=== PATIENT | female | born 1995 | race African-American/Black ===

== ENCOUNTER 2016-09-02 12:18 | Emergency (ER) | payer MEDICAID, OTHER ==
[~2016-09-02] VITALS: Ht 160 cm; Wt 100.0 kg
[~2016-09-02 12:18] MED LIST: CEPH500C3 PO; FLAG500T PO; MACR100C PO; PREN1TAB30 PO
[2016-09-02 12:20] VITALS: BP 134/91; PULSE 84; RESP 17; TEMP 98.7; O2SAT 96
--- NOTE | 2016-09-02 12:45 | PD ---
HPI Chief Complaint: Allergic/Adverse Reaction Time Seen by Provider: 12:32 Travel History International Travel<30 days: No Contact w/Intl Traveler<30days: No Traveled to known affect area: No History of Present Illness HPI 21-year-old female presents emergency Department with complaint of sore throat. Patient took a tablet of Lortab last night and woke up this morning with sore throat and is concerned she might be having an allergic reaction. She states that the throat is sore and hurts with swelling. No lip swelling, shortness of breath. No recent fevers or chills. No cough. PFSH Past Medical History Developmental Delay: No Immunizations Current: Yes ?: Not : 3 Para: 2 Miscarriage: 0 : 0 Social History Alcohol Use: No Tobacco Use: No Substance Use: No (DENIES) Allergies-Medications (Allergen,Severity, Reaction): Coded Allergies: No Known Allergies (Verified , 09/02/16) Reported Meds & Prescriptions Reported Meds & Active Scripts Active Review of Systems Except as stated in HPI: all other systems reviewed are Neg Physical Exam Narrative GENERAL: Well-appearing female in no acute distress SKIN: Focused skin assessment warm/dry. HEAD: Atraumatic. Normocephalic. EYES: Pupils equal and round. No scleral icterus. No injection or drainage. ENT: No nasal bleeding or discharge. Mucous membranes pink and moist. Posterior tonsillar edema, 2-3+ with exudate, no palatal petechiae. Shotty anterior cervical lymphadenopathy. NECK: Supple without stridor CARDIOVASCULAR: Regular rate and rhythm. RESPIRATORY: No accessory muscle use. Clear to auscultation. Breath sounds equal bilaterally. MUSCULOSKELETAL: Normal gait NEUROLOGICAL: Awake and alert. Normal speech. PSYCHIATRIC: Appropriate mood and affect; insight and judgment normal. Data Data Last Documented VS Vital Signs Date Time Temp Pulse Resp B/P Pulse Ox O2 Delivery O2 Flow Rate FiO2 09/02/16 12:48 74 16 97 Room Air 09/02/16 12:48 114/61 09/02/16 12:20 98.7 Orders Group A Rapid Strep Screen (09/02/16 12:39) Strep Culture (Group A) (09/02/16 12:45) MDM Medical Decision Making Medical Screen Exam Complete: Yes Emergency Medical Condition: Yes Medical Record Reviewed: Yes Differential Diagnosis 21-year-old female here with complaint of sore throat. Exam is consistent with pharyngitis, bacterial versus viral. Patient does have exudate so will test for strep. I do not think that this is allergic reaction, clearly looks infectious. Narrative Course Rapid strep was negative. Diagnosis Primary Impression: Pharyngitis Qualified Code: J02.9 - Pharyngitis, unspecified etiology Referrals: Primary Care Physician as needed Patient Instructions: General Instructions, Pharyngitis (ED) Additional Instructions: Chloraseptic lozenges or spray as discussed. Saltwater gargles. Med/Other Pt SpecificInfo: No Change to Meds Disposition: 01 DISCHARGE HOME Condition: Stable Telma Weinstein MD Sep 02, 2016 12:45
[2016-09-02 12:48] VITALS: BP 114/61; PULSE 73; RESP 16; O2SAT 98
== END 2016-09-02 14:08 | disposition home or self-care (01) ==
LOC: NEPD 12:18
DX: J02.9 Acute pharyngitis, unspecified (principal)
CPT/HCPCS: 87081; 87880; 99283